=== PATIENT | male | born 1950 | race Hispanic/Latino ===

== ENCOUNTER → 2019-07-02 | Outpatient (CLI) | payer MEDICARE ==
[2019-07-02 10:30] LABS: BLOOD UREA NITROGEN 13 mg/dL (7-26); BUN/CREATININE RATIO 12 (6-25); CREATININE, SERUM 1.09 mg/dL (0.72-1.25); EST GLOMERULAR FILTRATION RATE > 60 ML/MIN (60-)
--- NOTE | 2019-07-02 17:12 | Diagnostic Imaging Report ---
MRI NECK WOW HISTORY: Left parotid swelling, mass COMPARISON: None. TECHNIQUE: Multiplanar, multisequence MRI examination of the neck was performed without and with intravenous, gadolinium based contrast. Susceptibility artifacts in the oral cavity obscure some details. Motion and alias artifacts also obscure some details. DISCUSSION: The visualized upper aerodigestive tract is unremarkable. No significant cervical adenopathy is seen. The thyroid gland is unremarkable. The submandibular and parotid glands are unremarkable. The major cervical vessels are unremarkable. 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 The visualized intracranial compartment and orbits are grossly unremarkable. The paranasal sinuses are grossly clear. Bilateral T2 hyperintense mastoid effusions are present, left greater than right. Mild to moderate multilevel degenerative changes are seen throughout the spine. No suspicious focal or diffuse marrow signal abnormalities are seen. The visualized upper lungs are grossly unremarkable. IMPRESSION: 1. The parotid glands are unremarkable. 2. No discrete neck mass. No significant cervical adenopathy. 3. The visualized upper aerodigestive tract is unremarkable. Signed by: Dr. Darwin Milton M.D. on 07/02/2019 5:08 PM
== END ==
LOC: MRI 09:52
PROVIDERS: ATTEND Family Medicine
DX: R22.1 Localized swelling, mass and lump, neck (principal)
CPT/HCPCS: 36415; 70543; 82565; 84520

== ENCOUNTER → 2023-01-10 | Outpatient (CLI) | payer MEDICARE | LOC: RAD 10:07 | PROVIDERS: ATTEND Family Medicine | DX: M75.41 Impingement syndrome of right shoulder (principal) ==

== ENCOUNTER 2023-02-04 10:52 | Outpatient (RCR) | payer MEDICARE | END 2023-02-23 | LOC: OT 10:52 | PROVIDERS: ATTEND Specialist | DX: M24.611 Ankylosis, right shoulder (principal) ==